=== PATIENT | female | born 1980 | race Caucasian/White ===

== ENCOUNTER 2020-10-30 09:18 | Inpatient (IN) ==
[2020-10-30] MEDS ORDERED: FAMOTIDINE 20MG/5ML IV PUSH IV STA (10:15)
[2020-10-30] MEDS ORDERED: ACETAMINOPHEN 1,000 MG/100 ML VIAL IV STA (10:15)
[2020-10-30] MEDS ORDERED: SODIUM CHLORIDE 0.9% 1000ML 2,000 ML IV ONE (10:19)
[2020-10-30] MEDS ORDERED: ONDANSETRON INJ 2 MG/ML 2 ML VIAL IV STA (10:19)
--- NOTE | 2020-10-30 10:22 | Communication Note ---
Date of Service: October 30, 2020 I personally saw the patient. Patient's case was discussed with Dr. Arora, ED attending, and I participated in MDM. Please see attending documentation for full details.
[2020-10-30 10:32] LABS: Basophils # (auto) 0.01 K/uL (0-0.2); Basophils % (auto) 0.1 %; Hematocrit (blood only) 42.8 % (37-47); Hemoglobin 14.4 g/dL (12.0-16.0); Immature Granulocytes # (auto) 0.06 K/uL (0.00-0.02); Immature Granulocytes % (auto) 0.4 %; Lymphocytes # (auto) 0.47 K/uL (1.2-3.4); Mean Corpuscular Hemoglobin 30.5 pg (25-34); Mean Corpuscular Hgb Conc 33.6 g/dL (32-36); Mean Corpuscular Volume 90.7 fL (80-100); Monocytes % (auto) 3.2 %; Neutrophils # (auto) 14.51 K/uL (1.4-6.5); Neutrophils % (auto) 93.3 %; Platelet Count 199 K/uL (130-400); RDW Coefficient of Variation 13.6 % (11.5-14.5); RDW Standard Deviation 45.1 fL (36.4-46.3); Red Blood Count 4.72 M/uL (4.2-5.4); White Blood Count 15.55 K/uL (4.8-10.8)
[2020-10-30 10:34] LABS: Appearance Urine Cloudy (Clear); Bacteria Urine Automated Negative (Negative); Blood Urine Trace (Negative); Color Urine Dark Yellow; Epithelial Cell Urine Auto >30 /lpf (0-5); Glucose Urine UA Negative (Negative); Ketones Urine 4+ (Negative); Leukocyte Esterase Urine Trace (Negative); Nitrite Urine Negative (Negative); Protein Urine 2+ (Negative); Specific Gravity Urine 1.032 (1.000-1.030); Urobilinogen Urine Negative (Negative); pH Urine 5.5 (4.5-7.5)
[2020-10-30 10:35] LABS: Bilirubin Urine 1+ (Negative)
[2020-10-30 10:47] LABS: Albumin Level 3.4 gm/dl (3.4-5.0); BUN Creatinine Ratio 12.1 (10-20); Calcium 9.2 mg/dl (8.5-10.1); Creatinine Clr Calc Pharmacy 106.8 ml/min; Est GFR (Non-African American) 95.8 ml/min; Magnesium 1.7 mg/dl (1.8-2.4); Potassium 3.7 mmol/L (3.5-5.1)
[2020-10-30 10:50] LABS: Albumin Globulin Ratio 0.9 (0.9-2); Bilirubin,Total 0.8 mg/dl (0.2-1); Globulin 3.9 gm/dl (2.5-4.0); Phosphorus 1.6 mg/dl (2.5-4.9); Total Protein 7.3 gm/dl (6.4-8.2)
[2020-10-30 10:54] LABS: Pregnancy Test, Serum Negative (Negative)
[2020-10-30] MEDS ORDERED: POTASSIUM PHOS 3 MMOL/1 ML INFUSION IV STA ×2 (11:23→14:29)
[2020-10-30] MEDS ORDERED: MAGNESIUM SULFATE / D5W 1 GM/100 ML BAG IV STA ×2 (11:23→14:30)
[2020-10-30] MEDS ORDERED: POTASSIUM PHOSPHATE 15 MMOL in SODIUM CHLORIDE 0.9% 250 ML IV ONE (11:45)
[2020-10-30] MEDS ORDERED: OPTIRAY 320 100ml IV ONE (13:31)
--- NOTE | 2020-10-30 14:22 | CT Scan Report ---
CT abd pelvis oral and IV con CLINICAL HISTORY: lower abdominal pain COMPARISON STUDY: None. TECHNIQUE: A dose lowering technique was utilized adhering to the principles of ALARA. CT DOSE: 599.54 mGy.cm FINDINGS: Lower chest: Small atelectasis at dependent portion of the left lower lobe.. Liver: The contrast-enhanced liver is normal in size, contour, and attenuation. There is no intrahepa tic biliary ductal dilatation. The hepatic veins and portal veins are patent. Gallbladder: Unremarkable. Spleen: Normal in size and attenuation. Pancreas: Unremarkable. Adrenal glands: Unremarkable. Kidneys: There is symmetric renal cortical enhancement. The kidneys are normal in size without hydron ephrosis.Punctate nonobstructive calculus is seen within right renal pelvis. Pelvic viscera: Urinary bladder is adequately filled with urine. Uterus shows normal appearance for p atient's age group. Cystic appearance of bilateral adnexa measuring up to 3.4 cm on the right. Small amount of free fluid is seen within cul-de-sac. Bowel: Status post gastric bypass surgery. Bowel loops are nondilated. There is 1.0 cm dilated and fl uid-filled appendix (3/315; 2/64) which is better seen on coronal reconstruction, slice 311 of 513. T here is mild diffuse mesenteric edema is seen within the right lower quadrant without definite absces s formation. Peritoneum: There is no intraperitoneal free air or abdominal ascites. Vasculature: The abdominal aorta is normal in course and caliber. Adenopathy: None. Skeletal structures: Incidental findings of ill-defined sclerotic lesion of the left iliac bone and n o definite surrounding soft tissue inflammatory changes (2/315) IMPRESSION: 1. Dilated fluid-filled appendix with surrounding fat stranding likely representing acute appendicit is. No definite abscess is seen within the right lower quadrant. No free intra-abdominal gas is demon strated to suggest perforation. 2. Cystic appearance of bilateral adnexa measuring up to 3.4 cm on the right. Differential diagnosis include physiologic follicles or ovarian cysts. Follow-up evaluation with pelvic ultrasound on nonem ergency basis is suggested. 3. Nonobstructive nephrolithiasis on the right. 4. Incidental findings of sclerotic appearance of the left iliac bone. Differential diagnosis includ e fibrous dysplasia versus other etiology. Follow-up evaluation with radiograph of the pelvis on none mergency basis is recommended. 5. The rest of findings as above. ACT 112: Positive. There are findings on this exam that require communication between the performing entity and the patient following Patient Test Result Information Act ([place] Act 112) guidelines. The above report was generated using voice recognition software. It may contain grammatical, syntax o r spelling errors. Electronically signed by: Ashley Rooney DO 10/30/2020 2:20 PM
[2020-10-30] MEDS ORDERED: cefOXitin 2,000 MG/60 ML BAG IV STA (14:29)
--- NOTE | 2020-10-30 14:58 | History & Physical Report ---
Date of Service October 30, 2020 Assessment & Plan (1) Acute appendicitis: Plan: Will plan for laparoscopic appendectomy this evening, possible open procedure if necessary. Mefoxin was given in the ED. Dr. Herrera-no overt abscess on the CAT scan however patient has had symptoms for at least 48 hours and she has a fever May require open operation with drainage. We will also ask the [facility] medical team to help us with her perioperative care History of Present Illness Primary Care Provider: Jami Allen MD 39 y/o female with 2 days generalized abdominal pain localizing to RLQ. Had N/V when sx began on Friday. Has not had much to eat or drink since and nothing today. Found to be febrile in ED, didn't notice this at home. Allergies Allergy/AdvReac Type Severity Reaction Status Date / Time bupropion [From Wellbutrin] Allergy Intermediate Shortness Unverified 10/30/20 09:56 of Breath Home Medications Medication Instructions Recorded Confirmed Type lorazepam 0.5 mg tablet 0.5 mg PO DIRECTED PRN 11/10/17 10/30/20 History calcium carbonate 600 mg (1,500 1 tab PO DAILY 10/30/20 10/30/20 History mg)-vitamin D3 200 unit tablet pediatric multivitamin no.76 1 tab PO DAILY 10/30/20 10/30/20 History (Flintstones Complete) Past Med/Surg History Surgical History H/O gastric bypass Family History Other FH: cholecystectomy Social History Smoking Status: Never smoker Hx Alcohol Use: No Hx Substance Use: No Feels Safe at Home: Yes Review of Systems Constitutional: + anorexia; no fever and no chills Gastrointestinal: + abdominal pain, + nausea and + vomiting Physical Exam Constitutional: WD/WN, vitals as above Respiratory: normal respiratory effort, lungs clear to auscultation Cardiovascular: RRR, no murmur, no edema Gastrointestinal (Abdomen): Inspection/Auscultation: + abdominal surgical scar; abdomen not distended Percussion/Palpation: + abdomen tender (RLQ) and abdomen soft Skin: no rashes, warm and dry Results & Data Results & Data ([facility]) Vital Signs (Past 12 Hours) Vital Signs Temp Pulse Pulse Resp BP Pulse Ox 10/30/20 12:30 98 H 16 97/71 L 97 10/30/20 10:30 99 H 18 129/81 99 10/30/20 09:22 38.2 C H 106 H 18 96
[2020-10-30] MEDS ORDERED: MAGNESIUM SULFATE / D5W 1 GM/100 ML BAG IV ONE (15:07)
--- NOTE | 2020-10-30 15:17 | Hospitalist Consultation ---
Date of Consultation October 30, 2020 Assessment & Plan (1) Acute appendicitis: This is a 39yo F with a PMH of VITALY, history of gastric bypass surgery in 2009 who presented with abdominal pain and was found to have acute appendicitis. Febrile at 38.2 C in the ER, BP 97/70, HR 106, WBC 15.55 meeting sepsis criteria Lactate, blood cultures pending Empiric Zosyn started - follow cultures CT abd/pelvis with dilated fluid-filled appendix with surrounding fat stranding likely representing acute appendicitis. No definite abscess is seen within the right lower quadrant. No free intra-abdominal gas is demonstrated to suggest perforation General surgery to plan for laparoscopic appendectomy this evening, possible open procedure if necessary Pain control, diet, continued fluids mgmt per primary service (2) Hypophosphatemia: (3) Hypomagnesemia: Phosphate and magnesium replacement underway in ED Repeat lab work @ 1999 (4) Abnormal urinalysis: UA abnormal, receiving Zosyn for appendicitis and will cover for possible UTI as well Follow urine culture (5) History of gastric bypass: H/o gastric bypass surgery [place] 2009 [place] [facility] [place] Continue Flintstones complete MV BID, Vit D + C BID (6) VITALY (generalized anxiety disorder): Improved as of late. PRN Lorazepam DVT Ppx: SCDs Code status: FULL PCP: Alejandro Dispo: Per primary service Patient seen in collaboration with Dr. Dunn. Please see addendum. Thank you for this consultation. We will follow the patient with you during their hospital stay. You can reach a member of the [facility] Hospitalist Team 23/09 via [employer] Text @ "[facility] Hospitalist" role. Supervising Physician Co-Signing Physician Notes Patient is a 39-year-old female with history of generalized anxiety disorder, H/O gastric bypass surgery and no other significant medical problems presents with history of abdominal pain associated with nausea, vomiting, fever and chills since 2 days duration. Please review HPI for complete details of presentation. CT abdomen is suggestive of acute appendicitis, bilateral adnexal cystic lesions, nonobstructive nephrolithiasis, left iliac bone sclerosis. Blood work suggestive of leukocytosis 15 point 5K, hypomagnesemia 1.7, hypophosphatemia 1.6, abnormal urinalysis suggestive of possible urinary tract infection. Covid screen is negative. Patient is consulted for medical management. Physical Exam: Vitals signs as noted above General Appearance:Moderately built and nourished, no apparent distress Head: normocephalic, Atraumatic Eyes: normal inspection, EOMI Neck: supple, Trachea midline Respiratory/Chest: Normal breath sounds, CTA, No accessory muscle use Cardiovascular: S1, S2, No murmur, Tachycardia Abdomen/GI:Soft, B/L Lower quadrant tender, Bowel sounds present Extremities/Musculoskeletal:normal inspection, no edema Neurologic/Psych:AAOX3, grossly no focal neurological deficits Skin: normal color, warm Acute appendicitis Sepsis Hypophosphatemia Hypomagnesemia Abnormal UA concerning for UTI Agree with IV fluids, Zosyn Keep n.p.o. Replace electrolytes as needed Blood, urine cultures, lactic acid B/L Adnexal cysts Incidental finding on CT Needs OBGYN eval as outpatient Left iliac bone sclerosis Currently denies any acute symptoms Follow-up as outpatient Nonobstructive nephrolithiasis Asymptomatic I personally reviewed the record. Patient is interviewed and examined at bedside. Patient's care is coordinated with Rita Barber PA-C. Please refer to the documentation above for details of patient's presentation and for discussion of other issues. History of Present Illness Reason for Consultation: electrolyte mgmt Requesting Physician: Dr. Herrera Attending Physician: Dr. Herrera History of Present Illness This is a 39yo F with a PMH of VITALY, history of gastric bypass surgery in 2009 who presented with abdominal pain and was found to have acute appendicitis. Endorses abdominal pain for the past 2 days most severe in RLQ. Pain is intermittent, sharp, radiating to back and LLQ and exacerbated with movement. Had nausea and vomiting with initial pain over the weekend and has not have much to eat or drink since then. Intermittent chills. Did not take temperature at home but found to be febrile at 38.2 C in the ER. No diarrhea. No chest pain, SOB, lightheadedness, headache. Denies dysuria or hematuria but endorses odor. General surgery to plan for laparoscopic appendectomy this evening, possible open procedure if necessary. Phosphate and magnesium replacement underway in ED. Takes Flintstones complete MV BID as well as Vit D + C BID. Allergies Allergy/AdvReac Type Severity Reaction Status Date / Time bupropion [From Wellbutrin] Allergy Intermediate Shortness Unverified 10/30/20 09:56 of Breath Home Medications Medication Instructions Recorded Confirmed Type lorazepam 0.5 mg tablet 0.5 mg PO DIRECTED PRN 11/10/17 10/30/20 History calcium carbonate 600 mg (1,500 1 tab PO BID 10/30/20 10/30/20 History mg)-vitamin D3 200 unit tablet pediatric multivitamin no.76 1 tab PO DAILY 10/30/20 10/30/20 History (Flnahomy Complete) Patient History Medical History VITALY (generalized anxiety disorder) Surgical History H/O gastric bypass Family History Other FH: cholecystectomy Social History (Updated 10/30/20 @ 16:00 by Rita Barber PA-C) Smoking Status: Former smoker Smoking End Date: 2007; Hx Alcohol Use: Yes Alcohol Intake Frequency: Monthly or Less Hx Substance Use: No Feels Safe at Home: Yes Review of Systems Review of Systems: At least ten systems reviewed and negative except as noted in the HPI. Physical Exam Physical Exam: Please see Dr. Dunn's addendum for physical exam. Results & Data Results & Data ([facility]) Vital Signs (Past 12 Hours) Vital Signs Temp Pulse Pulse Resp BP Pulse Ox 10/30/20 12:30 98 H 16 97/71 L 97 10/30/20 10:30 99 H 18 129/81 99 10/30/20 09:22 38.2 C H 106 H 18 96 Laboratory Results Short CBC 10/30/20 Range/Units 10:00 WBC 15.55 H (4.8-10.8) K/uL Hgb 14.4 (12.0-16.0) g/dL Hct 42.8 (37-47) % Plt Count 199 (130-400) K/uL BMP 10/30/20 10:00 Sodium 135 L Potassium 3.7 Chloride 102 Carbon Dioxide 25 BUN 9 Creatinine 0.78 Glucose 130 H Calcium 9.2 Liver Function 10/30/20 Range/Units 10:00 Total Bilirubin 0.8 (0.2-1) mg/dl AST 19 (15-37) U/L ALT 28 (12-78) U/L Alkaline Phosphatase 69 (45-117) U/L Albumin 3.4 (3.4-5.0) gm/dl Urine 10/30/20 Range/Units 10:23 Urine Color Dark Yellow Urine Appearance Cloudy A (Clear) Urine pH 5.5 (4.5-7.5) Ur Specific Eure 1.032 H (1.000-1.030) Urine Protein 2+ H (Negative) Urine Glucose (UA) Negative (Negative) Diagnostic Findings Abdomen/Pelvis CT 10/30/20 10:19 CT abd pelvis oral and IV con CLINICAL HISTORY: lower abdominal pain COMPARISON STUDY: None. TECHNIQUE: A dose lowering technique was utilized adhering to the principles of ALARA. CT DOSE: 599.54 mGy.cm FINDINGS: Lower chest: Small atelectasis at dependent portion of the left lower lobe.. Liver: The contrast-enhanced liver is normal in size, contour, and attenuation. There is no intrahepatic biliary ductal dilatation. The hepatic veins and portal veins are patent. Gallbladder: Unremarkable. Spleen: Normal in size and attenuation. Pancreas: Unremarkable. Adrenal glands: Unremarkable. Kidneys: There is symmetric renal cortical enhancement. The kidneys are normal in size without hydronephrosis.Punctate nonobstructive calculus is seen within right renal pelvis. Pelvic viscera: Urinary bladder is adequately filled with urine. Uterus shows normal appearance for patient's age group. Cystic appearance of bilateral adnexa measuring up to 3.4 cm on the right. Small amount of free fluid is seen within cul-de-sac. Bowel: Status post gastric bypass surgery. Bowel loops are nondilated. There is 1.0 cm dilated and fluid-filled appendix (3/315; 2/64) which is better seen on coronal reconstruction, slice 311 of 513. There is mild diffuse mesenteric edema is seen within the right lower quadrant without definite abscess formation. Peritoneum: There is no intraperitoneal free air or abdominal ascites. Vasculature: The abdominal aorta is normal in course and caliber. Adenopathy: None. Skeletal structures: Incidental findings of ill-defined sclerotic lesion of the left iliac bone and no definite surrounding soft tissue inflammatory changes (2/315) IMPRESSION: 1. Dilated fluid-filled appendix with surrounding fat stranding likely representing acute appendicitis. No definite abscess is seen within the right lower quadrant. No free intra-abdominal gas is demonstrated to suggest perforation. 2. Cystic appearance of bilateral adnexa measuring up to 3.4 cm on the right. Differential diagnosis include physiologic follicles or ovarian cysts. Follow-up evaluation with pelvic ultrasound on nonemergency basis is suggested. 3. Nonobstructive nephrolithiasis on the right. 4. Incidental findings of sclerotic appearance of the left iliac bone. Differential diagnosis include fibrous dysplasia versus other etiology. Follow- up evaluation with radiograph of the pelvis on nonemergency basis is recommended . 5. The rest of findings as above. ACT 112: Positive. There are findings on this exam that require communication between the performing entity and the patient following Patient Test Result Information Act ([place] Act 112) guidelines. The above report was generated using voice recognition software. It may contain grammatical, syntax or spelling errors. Electronically signed by: Ashley Rooney DO 10/30/2020 2:20 PM
--- NOTE | 2020-10-30 15:29 | Emergency Department Note ---
Impression & Plan Acute appendicitis, History of gastric bypass, Hypomagnesemia, Hypophosphatemia ED Provider Note NAME: SHALOM PAREKH AGE: 39 SEX: F ARRIVES VIA: Walk-In INFORMANT: Patient, ED PROVIDER(S): Eduardo Arora MD CHIEF COMPLAINT: Abdominal pain, n/v. PLAN: Disposition: Admit MEDICAL DECISION MAKING: The patient is a pleasant 39 yo female with h/o gastric bypass in 2008 who presents to the ED for 2 days of subjective fever/chills, NBNB vomiting, decreased PO intake, lower abdominal pain that radiates to both sides of her back and groin, and "bladder" fullness. Her symptoms started the day after eating at [facility]. Patient reports that she has only been able to keep down small amounts of water without vomiting. She has not been able to take any medications for her pain because she cannot keep anything down. She denies diarrhea or c onstipation. Denies dysuria or increased urinary frequency/urgency. She denies alcohol use, tobacco use or drug use. On arrival patient is uncomfortable but no acute distress, febrile to 38 with heart rate in the with 100s and vital signs otherwise stable. On exam the patient appears clinically dry. She has moderate lower abdominal tenderness right greater than left. She has no guarding or rebound. WBC 15.5K. H/H and platelets within normal limits. Chemistry without metabolic acidosis. Magnesium 1.7 and phosphorus 1.6 with repletion initiated. LFTs unremarkable. Lipase not elevated. hCG was negative. UA is suspicious for infection albeit with epithelial cells present and no bacteria and patient denies urinary symptoms. CT of the and pelvis with IV and oral contrast was performed and demonstrates evidence consistent with appendicitis with dilated fluid-filled appendix with surrounding fat stranding. Case was discussed with Bulmaro Long, general surgery PAC and Dr. Herrera general surgery who evaluate the patient for admission and planned OR. They will consult inpatient [facility] Medical service to assist in medical management. This patient was managed with the assistance of resident, Dr. Fernández. I discussed the case with the resident, examined the patient, and confirm the findings and plan as documented in this note. Triage Nursing notes reviewed and agree them. Prior medical records reviewed Vital Signs: reviewed and remarkable for fever and tachycardia. Differential diagnosis: Appendicitis, ovarian cyst, ovarian torsion, ectopic , TOA, PID, infections, diverticulitis, UTI, obstruction, mesenteric ischemia, aortic pathology, inflammatory bowel disease, renal colic, PUD, pancreatitis, biliary pathology, hernia, volvulus, constipation, as well as other pathologies. ER treatment provided: See below. Diagnostics interpreted by me: ECG: None Cardiac Monitoring: None Laboratory studies: See below Imaging studies: See below Consultation(s): Bulmaro Long, general surgery PAC and Dr. Herrera general surgery who evaluate the patient for admission and planned OR. HPI: The patient is a pleasant 39 yo female with h/o gastric bypass in 2008 who presents to the ED for 2 days of subjective fever/chills, NBNB vomiting, decreased PO intake, lower abdominal pain that radiates to both sides of her back and groin, and "bladder" fullness. Her symptoms started the day after eatin g at [facility]. Patient reports that she has only been able to keep down small amounts of water without vomiting. She has not been able to take any medications for her pain because she cannot keep anything down. She denies diarrhea or constipation. Denies dysuria or increased urinary frequency/urgency. She denies alcohol use, tobacco use or drug use. ROS: See above HPI for pertinent positives & negatives. A total of 10 systems reviewed and were otherwise negative. PAST MEDICAL HISTORY:See Below PAST SURGICAL HISTORY:See Below FAMILY HISTORY:See Below SOCIAL HISTORY:See Below HOME MEDICATIONS:See Below ALLERGIES:See Below VITALS:See Below PHYSICAL EXAMINATION: GENERAL: Awake, alert, uncomfortable-appearing, in no distress HENT: Normocephalic, atraumatic. Oropharynx unremarkable. EYES: Normal conjunctiva. Sclera non-icteric. NECK: Supple. No nuchal rigidity. FROM. No JVD. RESPIRATORY: Clear to auscultation. CARDIAC: Regular rate, normal rhythm. Extremities warm and well perfused. Pulses equal. ABDOMEN: Soft, non-distended. Moderate lower abdominal tenderness to palpation right greater than left. No rebound or guarding. No masses. RECTAL: Deferred. MUSCULOSKELETAL: Chest examination reveals no tenderness. The back is symmetrical on inspection without obvious abnormality. There is no CVA tenderness to palpation. No joint edema. LOWER EXTREMITIES: Calves are equal size bilaterally and non-tender. No edema. No discoloration. NEURO: Normal sensorium. No sensory or motor deficits noted. SKIN: No rash or jaundice noted. 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 Required: No Beliefs That Will Affect Care: None Current Living Situation: Alone Other Information That Helps Us Care for You: No Feels Safe at Home: Yes Safety Concerns: Feels Safe At This Time Assistive Devices: Glasses Assistive Devices Comment: In the car, only for driving Allergies Allergies Allergy/AdvReac Type Severity Reaction Status Date / Time bupropion [From Wellbutrin] Allergy Intermediate Shortness Unverified 10/30/20 09:56 of Breath Home Meds Home Medications Medication Instructions Recorded Confirmed lorazepam 0.5 mg tablet 0.5 mg PO DIRECTED PRN 11/10/17 10/30/20 calcium carbonate 600 mg (1,500 1 tab PO BID 10/30/20 10/30/20 mg)-vitamin D3 200 unit tablet pediatric multivitamin no.76 1 tab PO DAILY 10/30/20 10/30/20 (Flintstones Complete) Results & Data (ED) Vital Signs Vital Signs - 24 hr 10/30/20 09:22 10/30/20 10:30 10/30/20 12:30 Temperature 38.2 C H Temperature Source Temporal Artery Scan Pulse Rate 106 H Pulse Rate [Apical] Pulse Rate [Finger] Pulse Rate [Left Apical] 99 H 98 H Pulse Rate [Left Finger] Pulse Rhythm [Apical] Pulse Rhythm [Finger] Pulse Rhythm [Left Apical] Regular Regular Pulse Rhythm [Left Finger] Pulse Strength [Finger] Pulse Strength [Left Apical] Normal Normal Pulse Strength [Left Finger] Respiratory Rate 18 18 16 Respiratory Effort / Characteristics Non-Labored Non-Labored Spontaneous Non-Labored Spontaneous Respiratory Depth Normal Normal Normal Respiratory Pattern Regular Regular Blood Pressure [Left Arm] 129/81 97/71 L Blood Pressure [Right Arm] Blood Pressure Mean [Left Arm] 97 79 Blood Pressure Mean [Right Arm] Blood Pressure Position [Left Arm] Lying Lying Blood Pressure Position [Right Arm] Pulse Oximetry 96 99 97 Oxygen Delivery Method Room Air Room Air Room Air Oxygen Flow Rate Sepsis Recent Fever Within 48 Hours No Sepsis New/Unexplained Change in Mental Status No Sepsis Action Taken by Nursing No Action Required 10/30/20 16:25 10/30/20 18:16 10/30/20 18:25 Temperature 38.9 C H Temperature Source Oral Pulse Rate Pulse Rate [Apical] 83 91 H Pulse Rate [Finger] Pulse Rate [Left Apical] Pulse Rate [Left Finger] 111 H Pulse Rhythm [Apical] Regular Regular Pulse Rhythm [Finger] Pulse Rhythm [Left Apical] Pulse Rhythm [Left Finger] Regular Pulse Strength [Finger] Pulse Strength [Left Apical] Pulse Strength [Left Finger] Normal Respiratory Rate 20 15 17 Respiratory Effort / Characteristics Non-Labored Spontaneous Non-Labored Spontaneous Non-Labored Spontaneous Respiratory Depth Normal Normal Normal Respiratory Pattern Regular Regular Regular Blood Pressure [Left Arm] 130/77 113/80 Blood Pressure [Right Arm] 125/77 Blood Pressure Mean [Left Arm] 94 91 Blood Pressure Mean [Right Arm] 93 Blood Pressure Position [Left Arm] Lying Lying Blood Pressure Position [Right Arm] Semi-fowlers Pulse Oximetry 97 100 100 Oxygen Delivery Method Room Air Oxymask Oxymask Oxygen Flow Rate 4 4 Sepsis Recent Fever Within 48 Hours Sepsis New/Unexplained Change in Mental Status Sepsis Action Taken by Nursing 10/30/20 18:35 10/30/20 18:45 10/30/20 18:55 Temperature Temperature Source Pulse Rate Pulse Rate [Apical] 82 96 H 77 Pulse Rate [Finger] Pulse Rate [Left Apical] Pulse Rate [Left Finger] Pulse Rhythm [Apical] Regular Regular Regular Pulse Rhythm [Finger] Pulse Rhythm [Left Apical] Pulse Rhythm [Left Finger] Pulse Strength [Finger] Pulse Strength [Left Apical] Pulse Strength [Left Finger] Respiratory Rate 14 20 18 Respiratory Effort / Characteristics Non-Labored Spontaneous Non-Labored Spontaneous Non-Labored Spontaneous Respiratory Depth Normal Normal Normal Respiratory Pattern Regular Regular Regular Blood Pressure [Left Arm] 114/67 115/68 105/70 Blood Pressure [Right Arm] Blood Pressure Mean [Left Arm] 82 83 81 Blood Pressure Mean [Right Arm] Blood Pressure Position [Left Arm] Lying Lying Lying Blood Pressure Position [Right Arm] Pulse Oximetry 100 97 94 Oxygen Delivery Method Oxymask Room Air Room Air Oxygen Flow Rate 4 Sepsis Recent Fever Within 48 Hours Sepsis New/Unexplained Change in Mental Status Sepsis Action Taken by Nursing 10/30/20 19:05 10/30/20 19:20 Temperature 36.8 C 37.7 C H Temperature Source Temporal Artery Scan Oral Pulse Rate Pulse Rate [Apical] 82 Pulse Rate [Finger] 78 Pulse Rate [Left Apical] Pulse Rate [Left Finger] Pulse Rhythm [Apical] Regular Pulse Rhythm [Finger] Regular Pulse Rhythm [Left Apical] Pulse Rhythm [Left Finger] Pulse Strength [Finger] Normal Pulse Strength [Left Apical] Pulse Strength [Left Finger] Respiratory Rate 19 18 Respiratory Effort / Characteristics Non-Labored Spontaneous Non-Labored Spontaneous Respiratory Depth Normal Normal Respiratory Pattern Regular Regular Blood Pressure [Left Arm] 103/66 103/68 Blood Pressure [Right Arm] Blood Pressure Mean [Left Arm] 78 79 Blood Pressure Mean [Right Arm] Blood Pressure Position [Left Arm] Lying Lying Blood Pressure Position [Right Arm] Pulse Oximetry 94 97 Oxygen Delivery Method Room Air Room Air Oxygen Flow Rate Sepsis Recent Fever Within 48 Hours Sepsis New/Unexplained Change in Mental Status Sepsis Action Taken by Nursing Laboratory Data Attestation: I reviewed the patient's lab results. Result diagrams: 10/30/20 10:00 10/30/20 10:00 Lab Results 10/30/20 10/30/20 10/30/20 Range/Units 10:00 10:00 10:00 WBC 15.55 H (4.8-10.8) K/uL RBC 4.72 (4.2-5.4) M/uL Hgb 14.4 (12.0-16.0) g/dL Hct 42.8 (37-47) % MCV 90.7 (80-100) fL MCH 30.5 (25-34) pg MCHC 33.6 (32-36) g/dL RDW Std Deviation 45.1 (36.4-46.3) fL RDW Coeff of Zander 13.6 (11.5-14.5) % Plt Count 199 (130-400) K/uL MPV 11.0 H (7.4-10.4) fL Immature Gran % (Auto) 0.4 % Neut % (Auto) 93.3 % Lymph % (Auto) 3.0 % [place] % (Auto) 3.2 % Eos % (Auto) 0.0 % Baso % (Auto) 0.1 % Neut # (Auto) 14.51 H (1.4-6.5) K/uL Lymph # (Auto) 0.47 L (1.2-3.4) K/uL [place] # (Auto) 0.50 (0.11-0.59) K/uL Eos # (Auto) 0.00 (0-0.5) K/uL Baso # (Auto) 0.01 (0-0.2) K/uL Immature Gran # (Auto) 0.06 H (0.00-0.02) K/uL Sodium 135 L (136-145) mmol/L Potassium 3.7 (3.5-5.1) mmol/L Chloride 102 (98-107) mmol/L Carbon Dioxide 25 (21-32) mmol/L Anion Gap 9.0 (3-11) BUN 9 (7-18) mg/dl Creatinine 0.78 (0.6-1.2) mg/dl Est Cr Clr Drug Dosing 106.8 ml/min Est GFR ( Amer) 111.0 ml/min Est GFR (Non-Af Amer) 95.8 ml/min BUN/Creatinine Ratio 12.1 (10-20) Glucose 130 H (70-99) mg/dl Calcium 9.2 (8.5-10.1) mg/dl Phosphorus 1.6 L (2.5-4.9) mg/dl Magnesium 1.7 L (1.8-2.4) mg/dl Total Bilirubin 0.8 (0.2-1) mg/dl AST 19 (15-37) U/L ALT 28 (12-78) U/L Alkaline Phosphatase 69 (45-117) U/L Total Protein 7.3 (6.4-8.2) gm/dl Albumin 3.4 (3.4-5.0) gm/dl Globulin 3.9 (2.5-4.0) gm/dl Albumin/Globulin Ratio 0.9 (0.9-2) Lipase 52 L (73-393) U/L HCG, Qual Negative (Negative) Urine Color Urine Appearance (Clear) Urine pH (4.5-7.5) Ur Specific [place] (1.000-1.030) Urine Protein (Negative) Urine Glucose (UA) (Negative) Urine Ketones (Negative) Urine Blood (Negative) Urine Nitrite (Negative) Urine Bilirubin (Negative) Urine Urobilinogen (Negative) Ur Leukocyte Esterase (Negative) Urine WBC (Auto) (0-5) /hpf Urine RBC (Auto) (0-4) /hpf U Hyaline Cast (Auto) (0-5) /lpf U Epithel Cells (Auto) (0-5) /lpf Urine Bacteria (Auto) (Negative) Ur Renal Epithelial Cell Granular Casts (0) /lpf COVID-19 Eval Order SARS-CoV-2 (PCR) (Negative) 10/30/20 10/30/20 10/30/20 Range/Units 10:23 14:40 14:40 WBC (4.8-10.8) K/uL RBC (4.2-5.4) M/uL Hgb (12.0-16.0) g/dL Hct (37-47) % MCV (80-100) fL MCH (25-34) pg MCHC (32-36) g/dL RDW Std Deviation (36.4-46.3) fL RDW Coeff of [place] (11.5-14.5) % Plt Count (130-400) K/uL MPV (7.4-10.4) fL Immature Gran % (Auto) % Neut % (Auto) % Lymph % (Auto) % [place] % (Auto) % Eos % (Auto) % Baso % (Auto) % Neut # (Auto) (1.4-6.5) K/uL Lymph # (Auto) (1.2-3.4) K/uL [place] # (Auto) (0.11-0.59) K/uL Eos # (Auto) (0-0.5) K/uL Baso # (Auto) (0-0.2) K/uL Immature Gran # (Auto) (0.00-0.02) K/uL Sodium (136-145) mmol/L Potassium (3.5-5.1) mmol/L Chloride (98-107) mmol/L Carbon Dioxide (21-32) mmol/L Anion Gap (3-11) BUN (7-18) mg/dl Creatinine (0.6-1.2) mg/dl Est Cr Clr Drug Dosing ml/min Est GFR ( Amer) ml/min Est GFR (Non-Af Amer) ml/min BUN/Creatinine Ratio (10-20) Glucose (70-99) mg/dl Calcium (8.5-10.1) mg/dl Phosphorus (2.5-4.9) mg/dl Magnesium (1.8-2.4) mg/dl Total Bilirubin (0.2-1) mg/dl AST (15-37) U/L ALT (12-78) U/L Alkaline Phosphatase (45-117) U/L Total Protein (6.4-8.2) gm/dl Albumin (3.4-5.0) gm/dl Globulin (2.5-4.0) gm/dl Albumin/Globulin Ratio (0.9-2) Lipase (73-393) U/L HCG, Qual (Negative) Urine Color Dark Yellow Urine Appearance Cloudy A (Clear) Urine pH 5.5 (4.5-7.5) Ur Specific [place] 1.032 H (1.000-1.030) Urine Protein 2+ H (Negative) Urine Glucose (UA) Negative (Negative) Urine Ketones 4+ H (Negative) Urine Blood Trace H (Negative) Urine Nitrite Negative (Negative) Urine Bilirubin 1+ H (Negative) Urine Urobilinogen Negative (Negative) Ur Leukocyte Esterase Trace H (Negative) Urine WBC (Auto) 10-30 H (0-5) /hpf Urine RBC (Auto) 5-10 H (0-4) /hpf U Hyaline Cast (Auto) 10-30 H (0-5) /lpf U Epithel Cells (Auto) >30 H (0-5) /lpf Urine Bacteria (Auto) Negative (Negative) Ur Renal Epithelial Cell Not Reportable Granular Casts 5-10 H (0) /lpf COVID-19 Eval Order Covid19 at [facility] SARS-CoV-2 (PCR) NEGATIVE (Negative) Administered Medications Discontinued Medications Bupivacaine HCl (Bupivacaine 0.5 % 5 Mg/1 Ml Mpf 30ml Vial) Confirm Administered Dose 30 ml .ROUTE .STHigherNext-MED ONE Stop: 10/30/20 16:36 Last Admin: 10/30/20 18:00 Dose: 15 ml Documented by: [id number] Famotidine (Famotidine 20mg/5ml Iv Push) 20 mg IV ONE STA Stop: 10/30/20 10:16 Last Admin: 10/30/20 10:31 Dose: 20 mg Documented by: [id number] Acetaminophen (Ofirmev) 1,000 mg in 100 mls @ 400 mls/hr IV NOW STA Stop: 10/30/20 10:29 Last Infusion: 10/30/20 10:46 Dose: 0 mls/hr Documented by: [id number] Admin: 10/30/20 10:31 Dose: 400 mls/hr Documented by: [id number] Sodium Chloride (Nss 1000ml) 2,000 mls @ 999 mls/hr IV .Q2H1M ONE Stop: 10/30/20 12:19 Last Infusion: 10/30/20 12:25 Dose: 0 mls/hr Documented by: [id number] Admin: 10/30/20 10:31 Dose: 999 mls/hr Documented by: [id number] Magnesium Sulfate/Dextrose (Magnesium Sulfate / D5w) 1 gm in 100 mls @ 100 mls/hr IV NOW STA Stop: 10/30/20 12:22 Last Infusion: 10/30/20 13:10 Dose: 0 mls/hr Documented by: [id number] Admin: 10/30/20 12:10 Dose: 100 mls/hr Documented by: [id number] Potassium Phosphate 15 mmol/ (Sodium Chloride) 255 mls @ 100 mls/hr IV 1145 ONE Stop: 10/30/20 14:17 Last Infusion: 10/30/20 14:47 Dose: 0 mls/hr Documented by: [id number] Admin: 10/30/20 12:10 Dose: 100 mls/hr Documented by: [id number] Cefoxitin Sodium (Mefoxin) 2,000 mg in 60 mls @ 100 mls/hr IV NOW STA Stop: 10/30/20 15:04 Last Infusion: 10/30/20 20:34 Dose: 0 mls/hr Documented by: [id number] Admin: 10/30/20 14:46 Dose: 100 mls/hr Documented by: [id number] Magnesium Sulfate/Dextrose (Magnesium Sulfate / D5w) 1 gm in 100 mls @ 100 mls/hr IV NOW STA Stop: 10/30/20 15:29 Last Infusion: 10/30/20 20:35 Dose: 0 mls/hr Documented by: [id number] Admin: 10/30/20 14:46 Dose: 100 mls/hr Documented by: [id number] Potassium Phosphate 6 mmol/ (Sodium Chloride) 102 mls @ 88 mls/hr IV ONE ONE Stop: 10/30/20 16:54 Last Infusion: 10/30/20 20:35 Dose: 0 mls/hr Documented by: [id number] Admin: 10/30/20 16:11 Dose: 88 mls/hr Documented by: [id number] Potassium Chloride 20 meq/ (Sodium Chloride) 1,010 mls @ 125 mls/hr IV .Q8H5M ANGELITO Stop: 11/29/20 16:29 Last Admin: 10/30/20 20:41 Dose: Not Given Documented by: [id number] Piperacillin Sod/Tazobactam Sod (Zosyn) 4.5 gm in 120 mls @ 230 mls/hr IV 1600 ONE Stop: 10/30/20 16:31 Last Infusion: 10/30/20 20:34 Dose: 0 mls/hr Documented by: [id number] Admin: 10/30/20 16:48 Dose: 230 mls/hr Documented by: [id number] Acetaminophen (Ofirmev) 1,000 mg in 100 mls @ 400 mls/hr IV NOW ONE; Protocol Stop: 10/30/20 18:26 Last Infusion: 10/30/20 20:33 Dose: 0 mls/hr Documented by: [id number] Admin: 10/30/20 18:26 Dose: 400 mls/hr Documented by: [id number] Ioversol (Optiray 320 100ml) 94 ml IV ONCE ONE Stop: 10/30/20 13:32 Last Admin: 10/30/20 13:31 Dose: 94 ml Documented by: [id number] Ondansetron HCl (Ondansetron Inj 2 Mg/Ml 2 Ml Vial) 4 mg IV NOW STA Stop: 10/30/20 10:20 Last Admin: 10/30/20 10:31 Dose: 4 mg Documented by: [id number] Potassium Phosphate (Potassium Phos 3 Mmol/1 Ml Infusion) 15 mmol IV NOW STA Stop: 10/30/20 11:24 Last Admin: 10/30/20 20:40 Dose: Not Given Documented by: [id number] Imaging Data Radiologist's Impression: Abdomen/Pelvis CT 10/30/20 10:19 CT abd pelvis oral and IV con CLINICAL HISTORY: lower abdominal pain COMPARISON STUDY: None. TECHNIQUE: A dose lowering technique was utilized adhering to the principles of ALARA. CT DOSE: 599.54 mGy.cm FINDINGS: Lower chest: Small atelectasis at dependent portion of the left lower lobe.. Liver: The contrast-enhanced liver is normal in size, contour, and attenuation. There is no intrahepatic biliary ductal dilatation. The hepatic veins and portal veins are patent. Gallbladder: Unremarkable. Spleen: Normal in size and attenuation. Pancreas: Unremarkable. Adrenal glands: Unremarkable. Kidneys: There is symmetric renal cortical enhancement. The kidneys are normal in size without hydronephrosis.Punctate nonobstructive calculus is seen within right renal pelvis. Pelvic viscera: Urinary bladder is adequately filled with urine. Uterus shows normal appearance for patient's age group. Cystic appearance of bilateral adnexa measuring up to 3.4 cm on the right. Small amount of free fluid is seen within cul-de-sac. Bowel: Status post gastric bypass surgery. Bowel loops are nondilated. There is 1.0 cm dilated and fluid-filled appendix (3/315; 2/64) which is better seen on coronal reconstruction, slice 311 of 513. There is mild diffuse mesenteric edema is seen within the right lower quadrant without definite abscess formation. Peritoneum: There is no intraperitoneal free air or abdominal ascites. Vasculature: The abdominal aorta is normal in course and caliber. Adenopathy: None. Skeletal structures: Incidental findings of ill-defined sclerotic lesion of the left iliac bone and no definite surrounding soft tissue inflammatory changes (2/315) IMPRESSION: 1. Dilated fluid-filled appendix with surrounding fat stranding likely represen ting acute appendicitis. No definite abscess is seen within the right lower quadrant. No free intra-abdominal gas is demonstrated to suggest perforation. 2. Cystic appearance of bilateral adnexa measuring up to 3.4 cm on the right. Differential diagnosis include physiologic follicles or ovarian cysts. Follow-up evaluation with pelvic ultrasound on nonemergency basis is suggested. 3. Nonobstructive nephrolithiasis on the right. 4. Incidental findings of sclerotic appearance of the left iliac bone. Differential diagnosis include fibrous dysplasia versus other etiology. Follow- up evaluation with radiograph of the pelvis on nonemergency basis is recommended. 5. The rest of findings as above. ACT 112: Positive. There are findings on this exam that require communication between the performing entity and the patient following Patient Test Result Information Act ([place] Act 112) guidelines. The above report was generated using voice recognition software. It may contain grammatical, syntax or spelling errors. Electronically signed by: Ashley Rooney DO 10/30/2020 2:20 PM Discharge Plan Visit Data Chief Complaint: GI Assessment Stated Complaint: INTESTIAL BLOCKAGE, CANNOT PASS GAS ED Provider: Eduardo Arora ED Midlevel Provider: Martell Fernández Discharge Problem: Acute appendicitis, History of gastric bypass, Hypomagnesemia, Hypophosphatemia Patient Disposition: Still a Patient Discharge Instructions Interventions: ED Discharge Assessment Last Done: 10/30/20 16:30 Discharge Problem: Acute appendicitis Qualifiers: Acute appendicitis type: with localized peritonitis Appendicitis gangrene presence: without gangrene Appendicitis perforation presence: without perforation Appendicitis abscess presence: without abscess Qualified Code(s): K35.30 - Acute appendicitis with localized peritonitis, without perforation or gangrene
[2020-10-30] MEDS ORDERED: POTASSIUM PHOSPHATE 6 MMOL in 0.9 % SODIUM CHLORIDE 100 ML IV ONE (15:45)
[2020-10-30] MEDS ORDERED: MIDAZOLAM HCL 1 MG/ML 2ML VIAL ONE (15:46)
[2020-10-30] MEDS ORDERED: GLYCOPYRROLATE 0.2 MG/ML VIAL ONE (15:46)
[2020-10-30] MEDS ORDERED: DEXAMETHASONE SOD INJ 4 MG/ML VIAL ONE (15:46)
[2020-10-30] MEDS ORDERED: LIDOCAINE 2% 2 ML VIAL/AMP(20MG/ML) INFIL ONE (15:46)
[2020-10-30] MEDS ORDERED: NEOSTIGMINE METHYLSULFATE 1 MG/ML 10ML VIAL ONE (15:46)
[2020-10-30] MEDS ORDERED: ONDANSETRON INJ 2 MG/ML 2 ML VIAL ONE (15:46)
[2020-10-30] MEDS ORDERED: fentaNYL citrate 100 MCG/2 ML VIAL ONE (15:46)
[2020-10-30] MEDS ORDERED: PROPOFOL IV EMULSION 10 MG/ML 20 ML VIAL IV ONE (15:46)
[2020-10-30] MEDS ORDERED: PIPERACILLIN/TAZOBACTAM 4.5 GM/120 ML BAG IV ONE ×2 (16:00→16:45)
[2020-10-30] MEDS ORDERED: LORazepam 0.5 MG TAB PO PRN (16:08)
[2020-10-30] MEDS ORDERED: PIPERACILL/TAZOBAC CONSULT ACTIVE PRN (16:09)
[2020-10-30] MEDS ORDERED: ePHEDrine sulfate 50 MG/ML SYR ONE (16:22)
[2020-10-30] MEDS ORDERED: LARYING-O-JET KIT (LTA) ONE (16:22)
[2020-10-30] MEDS ORDERED: POTASSIUM CHLORIDE 20 MEQ in SODIUM CHLORIDE 0.9% 1000ML 1,000 ML IV SCH (16:30)
[2020-10-30] MEDS ORDERED: BUPIVACAINE 0.5 % 5 MG/1 ML MPF 30ML VIAL ONE (16:35)
[2020-10-30] MEDS ORDERED: fentaNYL citrate 100 MCG/2 ML VIAL IV PRN (16:46)
[2020-10-30] MEDS ORDERED: ATROPINE SULFATE 0.1 MG/ML 10ML SYR IV PRN (16:46)
[2020-10-30] MEDS ORDERED: ONDANSETRON INJ 2 MG/ML 2 ML VIAL IV PRN ×2 (16:46→20:07)
[2020-10-30] MEDS ORDERED: ePHEDrine sulfate 50 MG/ML AMP IV PRN (16:46)
[2020-10-30] MEDS ORDERED: PROMETHAZINE HCL 12.5 MG in SODIUM CHLORIDE 0.9% 50 ML IV PRN ×2 (16:46→20:07)
[2020-10-30] MEDS ORDERED: HYDROmorphone INJ 2 MG/ML SYR/VIAL IV PRN (16:46)
--- NOTE | 2020-10-30 16:46 | Anesthesiology Consultation ---
Date of Service October 30, 2020 Assessment & Plan ASA ASA2 Proposed Anesthesia Anesthesia Type: General Risk / Benefits Reviewed With: PT / POA / Parent / Guardian, Accepts Plan and Informed Consent Obtained History Surgery Operation Date: 10/30/20 13:10 Proposed Procedures p Laparoscopic Appendectomy - Murray Herrera MD, FACS Height/Weight Height: 5 ft 5 in Weight: 89.1 kg Allergies Allergy/AdvReac Type Severity Reaction Status Date / Time bupropion [From Wellbutrin] Allergy Intermediate Shortness Unverified 10/30/20 09:56 of Breath Medications Home Medications Medication Instructions Recorded Confirmed Last Taken lorazepam 0.5 mg tablet 0.5 mg PO DIRECTED PRN 11/10/17 10/30/20 Unknown calcium carbonate 600 mg (1,500 1 tab PO BID 10/30/20 10/30/20 10/30/20 mg)-vitamin D3 200 unit tablet pediatric multivitamin no.76 1 tab PO DAILY 10/30/20 10/30/20 10/30/20 (Flintstones Complete) Active Medications Generic Name Dose Route Start Last Admin Trade Name Freq PRN Reason Stop Dose Admin Potassium Phosphate 6 mmol/ 102 mls @ 88 mls/hr 10/30/20 15:45 10/30/20 16:11 Sodium Chloride IV 10/30/20 16:54 88 mls/hr ONE ONE Administration Past Medical History Medical History VITALY (generalized anxiety disorder) Exercise / Class Metabolic Activity II 4-5 Yardwork/Stairs/Walk up hill Past Family History Family History Other FH: cholecystectomy Past Surgical History Surgical History H/O gastric bypass Past Anesthesia History No Hx of Anesthesia Complications and No Family Hx of Anesthesia Complications History of PONV No Hx of PONV and No Hx of Motion Sickness Social History Smoking Status: Former smoker Smoking End Date: 2007 Hx Alcohol Use: Yes Hx Substance Use: No Review of Systems denies fever/cough/ colds/ chest pain/ SOB/ KHURRAM denies KHURRAM Physical Exam Vital Signs Last Vital Signs Temp 38.2 C H 10/30/20 09:22 Pulse 98 H 10/30/20 12:30 Resp 16 10/30/20 12:30 BP 97/71 L 10/30/20 12:30 Pulse Ox 97 10/30/20 12:30 ENMT Mouth: no TMJ abnormality and no dentition abnormality Thyromental Distance: > or= 3.5 Finger Breadths Mallampati Class: II Neck neck extension not limited Respiratory normal respiratory effort; no respiratory distress Auscultation: lungs clear to auscultation bilaterally Cardiovascular Rate/Rhythm: regular rate and regular rhythm Neurologic moves all extremities Psychiatric Orientation: alert and oriented x 3 Testing Laboratory Results 10/30/20 10:00 10/30/20 10:00 Urine Color Dark Yellow 10/30/20 10:23 Urine Appearance Cloudy (Clear) A 10/30/20 10:23 Urine pH 5.5 (4.5-7.5) 10/30/20 10:23 Ur Specific [place] 1.032 (1.000-1.030) H 10/30/20 10:23 Urine Protein 2+ (Negative) H 10/30/20 10:23 Urine Glucose (UA) Negative (Negative) 10/30/20 10:23 Urine Ketones 4+ (Negative) H 10/30/20 10:23 Urine Nitrite Negative (Negative) 10/30/20 10:23 Ur Leukocyte Esterase Trace (Negative) H 10/30/20 10:23 Urine WBC (Auto) 10-30 /hpf (0-5) H 10/30/20 10:23 Urine RBC (Auto) 5-10 /hpf (0-4) H 10/30/20 10:23 U Hyaline Cast (Auto) 10-30 /lpf (0-5) H 10/30/20 10:23 U Epithel Cells (Auto) >30 /lpf (0-5) H 10/30/20 10:23 Urine Bacteria (Auto) Negative (Negative) 10/30/20 10:23
[2020-10-30] MEDS ORDERED: ROCURONIUM BROMIDE 10 MG/ML 5 ML VIAL IV ONE (17:32)
[2020-10-30] MEDS ORDERED: ACETAMINOPHEN 1,000 MG/100 ML VIAL IV ONE (18:12)
--- NOTE | 2020-10-30 18:12 | Post Operative Brief Note ---
PG Immediate Post Op with CF Date of Surgery October 30, 2020 Pre & Post Diagnosis Operation Date: 10/30/20 13:10 Pre-Op Diagnosis: Acute appendicitis Post-Op Diagnosis: Ruptured appendix with abscess I identified the patient and participated in the time-out.: Yes Procedure Operation Date: 10/30/20 13:10 Actual Procedures p Laparoscopic Appendectomy(Not Applicable) - Murray Herrera MD, FACS Abdominal washout with drain placement Surgeon Murray Herrera MD, FACS [employer] Specialist Nurses Estimated Blood Loss 20 Findings Consistent with Post-Op Diagnosis Ruptured appendix with bryce appendiceal abscess Specimens Specimen Description: A. Appendix Drains Conrad-Judd Drain (19fr round drain)
[2020-10-30] MEDS ORDERED: ACETAMINOPHEN 1000 MG/100 ML IV IV ONE (18:24)
--- NOTE | 2020-10-30 18:33 | Anesthesiology Progress Note ---
Date of Service October 30, 2020 Anesthesia Post Procedure Vital Signs Vital Signs: Temp Pulse Pulse Pulse Resp BP BP 10/30/20 16:25 38.9 C H 111 H 20 125/77 10/30/20 12:30 98 H 16 97/71 L 10/30/20 10:30 99 H 18 129/81 10/30/20 09:22 38.2 C H 106 H 18 Pulse Ox 10/30/20 16:25 97 10/30/20 12:30 97 10/30/20 10:30 99 10/30/20 09:22 96 Pain Intensity Right Lower Wrist: Pain Intensity: 6 Transfer of Care Handoff Completed per policy Notes Mental Status: alert / awake / arousable and participated in evaluation Patient Amnestic to Procedure: Yes Nausea / Vomiting: adequately controlled Pain: adequately controlled Airway Patency, RR, SpO2: stable & adequate BP & HR: stable & adequate Hydration State: stable & adequate Anesthetic Complications: no major complications apparent and Pt Satisfied with anesthetic care
[2020-10-30] MEDS ORDERED: IBUPROFEN 600 MG TAB PO PRN (20:07)
[2020-10-30] MEDS ORDERED: HYDROmorphone INJ 1 MG/ML SYRINGE IV PRN (20:07)
[2020-10-30] MEDS ORDERED: PROMETHAZINE HCL 25 MG in SODIUM CHLORIDE 0.9% 50 ML IV PRN (20:07)
[2020-10-30 21:16] LABS: BUN Creatinine Ratio 11.7 (10-20); Calcium 8.1 mg/dl (8.5-10.1); Creatinine Clr Calc Pharmacy 124.3 ml/min; Est GFR (African American) 128.3 ml/min; Est GFR (Non-African American) 110.7 ml/min; Magnesium 2.1 mg/dl (1.8-2.4); Phosphorus 2.1 mg/dl (2.5-4.9); Potassium 3.8 mmol/L (3.5-5.1)
[2020-10-30] MEDS: PIPERACILLIN/TAZOBACTAM 3.375 GM in DEXTROSE 5% 100 ML IV SCH (21:50)
[2020-10-30] MEDS: SODIUM CHLORIDE 0.9% 1000ML 1,000 ML IV SCH (21:50)
[2020-10-30] MEDS: CALCIUM 600MG + VIT D 400 IU TAB PO SCH (22:00)
[2020-10-30] MEDS: MULTIVITAMIN CHEWABLE TAB PO SCH (22:00)
[2020-10-31] MEDS: HYDROmorphone INJ 0.5 MG/0.5 ML SYR IV PRN ×3 (01:12→21:30)
[2020-10-31] MEDS: ACETAMINOPHEN 325 MG TAB PO PRN ×2 (01:13→07:53)
--- NOTE | 2020-10-31 02:47 | Operative Report (OR) ---
DATE OF OPERATION: 10/30/2020. NAME OF OPERATION: Laparoscopic appendectomy with abdominal washout and drain placement. PREOPERATIVE DIAGNOSIS: Acute appendicitis. POSTOPERATIVE DIAGNOSIS: Acute appendicitis with ruptured appendix and periappendiceal abscess. STAFF SURGEON: Murray Herrera MD ASSISTANTS: Nurses. ANESTHESIA: General. DESCRIPTION OF PROCEDURE: The patient was brought in the operating room and placed on the operating table in supine position. Pneumatic stockings and orogastric tube were placed. Incision was made ab ove the umbilicus, carrying dissection down to the fascia, placing a Veress needle producing pneumope ritoneum, placing a 5 mm port. Using the camera, we were able to place two additional 5 mm ports, on e suprapubically and one left lower quadrant. At this point, we were able to identify the appendix, which was thickened and inflamed with an exudate and some cloudy fluid in the periappendiceal area, a lso a small amount in the pelvis and left colic area. With some difficulty because of retroperitoneal adhesions, the appendix was mobilized. The base of the appendix was transected using Endo-PAULINE stapl er and then some additional 5 mm clips were used for the mesentery as well as additional PAULINE staple l oads. The appendix was placed into an Endobag and removed through the umbilical site. We placed a 1 2 mm port to use the stapler. We placed in the 5 mm port at the umbilicus. At this point, irrigatio n was performed throughout the abdomen and then we placed a third additional 5 mm port in the right s tio of the abdomen to place a 19-Cypriot Conrad-Judd drain into the right gutter down into the pelvi s, secured using 3-0 nylon suture. All ports were then removed. Fascia at the umbilicus was closed using 0 PDS suture. The skin was reapproximated using 4-0 nylon suture. Dressings were applied and the patient was transferred to recovery room in stable condition. Job ID: [id number]
[2020-10-31] MEDS: PIPERACILLIN/TAZOBACTAM 3.375 GM in DEXTROSE 5% 100 ML IV SCH ×3 (06:15→22:08)
--- NOTE | 2020-10-31 06:37 | Surgery Progress Note ---
Date of Service October 31, 2020 Assessment & Plan (1) S/P laparoscopic appendectomy: Plan: Patient presented to the emergency room with sepsisfever tachycardia and elevated white blood cell count with evidence of acute appendicitis She had a ruptured appendix with periappendiceal abscess She underwent laparoscopic appendectomy with abdominal washout and drain placement She appears much improved-her vital signs are stable Her drain shows serous sanguinous drainage which is expected We will try to advance her diet Continue IV fluids and IV antibiotics Favor additional days in the hospital because of her need for IV intervention And possible ileus Admission and Anticipated Discharge Date Admission Date: October 30, 2020 Results & Data ([facility]) Vital Signs (Past 12 Hours) Vital Signs Temp Pulse Pulse Resp BP BP Pulse Ox 10/31/20 02:11 36.8 C 68 17 96/63 L 96 10/30/20 22:41 36.7 C 68 18 112/73 96 10/30/20 21:27 36.7 C 80 17 119/74 96 10/30/20 20:20 36.7 C 80 17 111/73 96 10/30/20 19:55 36.5 C 80 17 103/64 96 10/30/20 19:20 37.7 C H 78 18 103/68 97 10/30/20 19:05 36.8 C 82 19 103/66 94 10/30/20 18:55 77 18 105/70 94 10/30/20 18:45 96 H 20 115/68 97 10/30/20 18:35 82 14 114/67 100 PG Care Time/CCT Total # of Minutes Spent Total Time Spent with Patient: Total time spent is greater than 50% in coordination of care (as documented) at patient's floor/unit and/or counseling patient: Coding Level of Care Code None Diagnoses S/P laparoscopic appendectomy Z90.49
[2020-10-31 07:51] LABS: Basophils # (auto) 0.01 K/uL (0-0.2); Basophils % (auto) 0.1 %; Eosinophils # (auto) 0.01 K/uL (0-0.5); Eosinophils % (auto) 0.1 %; Hematocrit (blood only) 37.7 % (37-47); Hemoglobin 12.3 g/dL (12.0-16.0); Immature Granulocytes # (auto) 0.01 K/uL (0.00-0.02); Immature Granulocytes % (auto) 0.1 %; Lymphocytes # (auto) 0.49 K/uL (1.2-3.4); Lymphocytes % (auto) 5.5 %; Mean Corpuscular Hemoglobin 29.9 pg (25-34); Mean Corpuscular Hgb Conc 32.6 g/dL (32-36); Mean Corpuscular Volume 91.7 fL (80-100); Mean Platelet Volume 11.2 fL (7.4-10.4); Monocytes # (auto) 0.45 K/uL (0.11-0.59); Neutrophils # (auto) 8.02 K/uL (1.4-6.5); Neutrophils % (auto) 89.2 %; Platelet Count 164 K/uL (130-400); RDW Coefficient of Variation 13.9 % (11.5-14.5); RDW Standard Deviation 46.7 fL (36.4-46.3); Red Blood Count 4.11 M/uL (4.2-5.4); White Blood Count 8.99 K/uL (4.8-10.8)
[2020-10-31 08:12] LABS: Estimated Average Glucose 94 mg/dl; Hemoglobin A1C 4.9 % (4.5-5.6)
[2020-10-31 08:26] LABS: Albumin Level 2.7 gm/dl (3.4-5.0); BUN Creatinine Ratio 12.4 (10-20); Calcium 8.3 mg/dl (8.5-10.1); Creatinine Clr Calc Pharmacy 132.2 ml/min; Magnesium 2.3 mg/dl (1.8-2.4); Potassium 4.2 mmol/L (3.5-5.1)
[2020-10-31 08:36] LABS: Albumin Globulin Ratio 0.8 (0.9-2); Bilirubin,Total 0.6 mg/dl (0.2-1); Globulin 3.2 gm/dl (2.5-4.0); Phosphorus 2.4 mg/dl (2.5-4.9); Total Protein 5.9 gm/dl (6.4-8.2)
--- NOTE | 2020-10-31 08:55 | Hospitalist Progress Note ---
Date of Service October 31, 2020 Assessment & Plan (1) Acute appendicitis: Plan: This is a 39yo F with a PMH of VITALY, history of gastric bypass surgery in 2009 who presented with abdominal pain and was found to have acute appendicitis. Sepsis - on admission - now resolved S/P Laparoscopic Appendectomy, POD #1 ruptured appendix with periappendiceal abscess BEVERLEY drain with serosanguineous drainage Advance diet per gen surg IVF and IV antibiotics per gen surg passing flatus blood and urine culture still pending (2) Hypophosphatemia: (3) Hypomagnesemia: Plan: improved, phos 2.4 today will give 6mmol neutra-phos (4) Abnormal urinalysis: Plan: continue Antibiotic Urine culture pending (5) History of gastric bypass: Plan: H/o gastric bypass surgery [place] 2009 [place] [facility] [place] Flintstones complete MV BID, Vit D + C BID (6) VITALY (generalized anxiety disorder): Plan: Improved as of late. PRN Lorazepam DVT Ppx: SCDs Code status: FULL PCP: Alejandro Dispo: Per primary service Patient seen in collaboration with Dr. Dunn. Please see addendum. Thank you for this consultation. We will follow the patient with you during their hospital stay. You can reach a member of the [facility] Hospitalist Team 23/09 via [place] Text @ "[facility] Hospitalist" role. Admission and Anticipated Discharge Date Admission Date: October 30, 2020 Supervising Physician Co-Signing Physician Notes Patient is seen and examined at bedside. States having minimal incisional pain but controlled. Denies nausea, vomiting, chest pain, dyspnea, dizziness. Tolerates liquid diet. Physical Exam: Vitals signs as noted above General Appearance:Moderately built and nourished, no apparent distress Head: normocephalic, Atraumatic Eyes: normal inspection, EOMI Neck: supple, Trachea midline Respiratory/Chest: Normal breath sounds, CTA Cardiovascular: S1, S2, No murmur, Tachycardia Abdomen/GI:Soft, Mild tenderness, +dressing, drain, Bowel sounds present Extremities/Musculoskeletal:normal inspection, no edema Neurologic/Psych:AAOX3, grossly no focal neurological deficits Skin: normal color, warm Acute appendicitis Sepsis Ruptured appendix with abscess S/P laparoscopic appendectomy POD#1 Continue wound care Continue IV fluids, antibiotics Advance diet as tolerated Appreciate surgery input Follow-up blood cultures Abnormal UA Likely contamination Urine Cx pending on Abx as above B/L Adnexal cysts Incidental finding on CT Needs OBGYN rejial as outpatient Left iliac bone sclerosis Currently denies any acute symptoms Follow-up as outpatient I personally reviewed the record. Patient is interviewed and examined at bedside. Patient's care is coordinated with Edelmira Hoffman PA-C. Please refer to the documentation above for details of patient's presentation and for discussion of other issues. Subjective Patient was seen and examined in room 384-2. F/U POD #1 Appendectomy. Overall patient has no concerns. She does complain of incisional pain as well as incisional pain with walking. She denies any fever, chills, sweats, lightheadedness, dizziness, chest pain, shortness breath, cough, nausea, vomiting and difficulty with urination. She is passing flatus. Tolerating liquid diet. Review of Systems Review of Systems: All systems reviewed & are unremarkable except as noted in HPI & below Physical Exam Physical Exam: Gen: WD/WN, NAD, A&O x3 HEENT: Normocephalic, atraumatic, conjunctivae moist, sclerae anicteric, mucous membranes moist. Lung: Clear to Auscultation bilaterally, no wheezes/rales/rhonchi Heart: Regular rate, regular rhythm, no murmurs, rubs, or gallops Abdomen: Soft, NT, ND +BS x 4, dressing CDI Extremities: No edema Skin: Warm, no rash, negative turgor. Results & Data Results & Data ([facility]) Vital Signs (Past 12 Hours) Vital Signs Temp Pulse Pulse Resp BP Pulse Ox 10/31/20 07:30 36.9 C 61 18 102/70 99 10/31/20 02:11 36.8 C 68 17 96/63 L 96 10/30/20 22:41 36.7 C 68 18 112/73 96 10/30/20 21:27 36.7 C 80 17 119/74 96 Laboratory Results Short CBC 10/30/20 10/31/20 Range/Units 10:00 07:12 WBC 15.55 H 8.99 (4.8-10.8) K/uL Hgb 14.4 12.3 (12.0-16.0) g/dL Hct 42.8 37.7 (37-47) % Plt Count 199 164 (130-400) K/uL BMP 10/30/20 10/30/20 10/31/20 10:00 20:39 07:12 Sodium 135 L 134 L 139 Potassium 3.7 3.8 4.2 Chloride 102 104 108 H Carbon Dioxide 25 24 27 BUN 9 8 8 Creatinine 0.78 0.67 0.63 Glucose 130 H 217 H 116 H Calcium 9.2 8.1 L 8.3 L Liver Function 10/30/20 10/31/20 Range/Units 10:00 07:12 Total Bilirubin 0.8 0.6 (0.2-1) mg/dl AST 19 19 (15-37) U/L ALT 28 25 (12-78) U/L Alkaline Phosphatase 69 62 (45-117) U/L Albumin 3.4 2.7 L (3.4-5.0) gm/dl Urine 10/30/20 Range/Units 10:23 Urine Color Dark Yellow Urine Appearance Cloudy A (Clear) Urine pH 5.5 (4.5-7.5) Ur Specific [place] 1.032 H (1.000-1.030) Urine Protein 2+ H (Negative) Urine Glucose (UA) Negative (Negative) Medications Administered Medication List Acetaminophen (Acetaminophen 325 Mg Tab) 650 mg PO Q4H PRN PRN Reason: Fever Stop: 11/29/20 20:06 Last Admin: 10/31/20 07:53 Dose: 650 mg Documented by: [id number] Admin: 10/31/20 01:13 Dose: 650 mg Documented by: [id number] Hydromorphone HCl (Hydromorphone Inj 0.5 Mg/0.5 Ml Syr) 0.5 mg IV Q3HWA PRN PRN Reason: Pain Stop: 11/13/20 20:06 Last Admin: 10/31/20 01:12 Dose: 0.5 mg Documented by: [id number] Piperacillin Sod/Tazobactam (Sod 3.375 gm/ Dextrose) 115 mls @ 28.75 mls/hr IV Q8H [facility]; Protocol Stop: 11/09/20 19:59 Last Admin: 10/31/20 06:15 Dose: 28.8 mls/hr Documented by: [id number] Infusion: 10/31/20 01:53 Dose: 0 mls/hr Documented by: [id number] Admin: 10/30/20 21:50 Dose: 28.8 mls/hr Documented by: [id number] Sodium Chloride (Nss 1000ml) 1,000 mls @ 50 mls/hr IV .Q20H ANGELITO Stop: 11/29/20 20:06 Last Infusion: 10/31/20 07:51 Dose: 50 mls/hr Documented by: [id number] Admin: 10/30/20 21:50 Dose: 80 mls/hr Documented by: [id number] Multivitamins/Folic Acid/Vitamin C (Multivitamin Chewable Tab) 1 tab PO BID ANGELITO Stop: 11/29/20 20:59 Last Admin: 10/30/20 22:00 Dose: 1 tab Documented by: [id number] Multivitamins/Minerals (Calcium 600mg + Vit D 400 Iu Tab) 1 tab PO BID ANGELITO Stop: 11/29/20 20:59 Last Admin: 10/30/20 22:00 Dose: 1 tab Documented by: [id number] Discontinued Medications Acetaminophen (Acetaminophen 1000 Mg/100 Ml Iv) Confirm Administered Dose 1,000 mg IV .STK-MED ONE Stop: 10/30/20 18:25 Last Admin: 10/30/20 21:56 Dose: Not Given Documented by: [id number] Bupivacaine HCl (Bupivacaine 0.5 % 5 Mg/1 Ml Mpf 30ml Vial) Confirm Administered Dose 30 ml .ROUTE .STK-MED ONE Stop: 10/30/20 16:36 Last Admin: 10/30/20 18:00 Dose: 15 ml Documented by: [id number] Famotidine (Famotidine 20mg/5ml Iv Push) 20 mg IV ONE STA Stop: 10/30/20 10:16 Last Admin: 10/30/20 10:31 Dose: 20 mg Documented by: [id number] Acetaminophen (Ofirmev) 1,000 mg in 100 mls @ 400 mls/hr IV NOW STA Stop: 10/30/20 10:29 Last Infusion: 10/30/20 10:46 Dose: 0 mls/hr Documented by: [id number] Admin: 10/30/20 10:31 Dose: 400 mls/hr Documented by: [id number] Sodium Chloride (Nss 1000ml) 2,000 mls @ 999 mls/hr IV .Q2H1M ONE Stop: 10/30/20 12:19 Last Infusion: 10/30/20 12:25 Dose: 0 mls/hr Documented by: [id number] Admin: 10/30/20 10:31 Dose: 999 mls/hr Documented by: [id number] Magnesium Sulfate/Dextrose (Magnesium Sulfate / D5w) 1 gm in 100 mls @ 100 mls/hr IV NOW STA Stop: 10/30/20 12:22 Last Infusion: 10/30/20 13:10 Dose: 0 mls/hr Documented by: [id number] Admin: 10/30/20 12:10 Dose: 100 mls/hr Documented by: [id number] Potassium Phosphate 15 mmol/ (Sodium Chloride) 255 mls @ 100 mls/hr IV 1145 ONE Stop: 10/30/20 14:17 Last Infusion: 10/30/20 14:47 Dose: 0 mls/hr Documented by: [id number] Admin: 10/30/20 12:10 Dose: 100 mls/hr Documented by: [id number] Cefoxitin Sodium (Mefoxin) 2,000 mg in 60 mls @ 100 mls/hr IV NOW STA Stop: 10/30/20 15:04 Last Infusion: 10/30/20 20:34 Dose: 0 mls/hr Documented by: [id number] Admin: 10/30/20 14:46 Dose: 100 mls/hr Documented by: [id number] Magnesium Sulfate/Dextrose (Magnesium Sulfate / D5w) 1 gm in 100 mls @ 100 mls/hr IV NOW STA Stop: 10/30/20 15:29 Last Infusion: 10/30/20 20:35 Dose: 0 mls/hr Documented by: [id number] Admin: 10/30/20 14:46 Dose: 100 mls/hr Documented by: [id number] Potassium Phosphate 6 mmol/ (Sodium Chloride) 102 mls @ 88 mls/hr IV ONE ONE Stop: 10/30/20 16:54 Last Infusion: 10/30/20 20:35 Dose: 0 mls/hr Documented by: [id number] Admin: 10/30/20 16:11 Dose: 88 mls/hr Documented by: [id number] Potassium Chloride 20 meq/ (Sodium Chloride) 1,010 mls @ 125 mls/hr IV .Q8H5M ANGELITO Stop: 11/29/20 16:29 Last Admin: 10/30/20 20:41 Dose: Not Given Documented by: [id number] Piperacillin Sod/Tazobactam Sod (Zosyn) 4.5 gm in 120 mls @ 230 mls/hr IV 1600 ONE Stop: 10/30/20 16:31 Last Infusion: 10/30/20 20:34 Dose: 0 mls/hr Documented by: [id number] Admin: 10/30/20 16:48 Dose: 230 mls/hr Documented by: [id number] Acetaminophen (Ofirmev) 1,000 mg in 100 mls @ 400 mls/hr IV NOW ONE; Protocol Stop: 10/30/20 18:26 Last Infusion: 10/30/20 20:33 Dose: 0 mls/hr Documented by: [id number] Admin: 10/30/20 18:26 Dose: 400 mls/hr Documented by: [id number] Ioversol (Optiray 320 100ml) 94 ml IV ONCE ONE Stop: 10/30/20 13:32 Last Admin: 10/30/20 13:31 Dose: 94 ml Documented by: [id number] Ondansetron HCl (Ondansetron Inj 2 Mg/Ml 2 Ml Vial) 4 mg IV NOW STA Stop: 10/30/20 10:20 Last Admin: 10/30/20 10:31 Dose: 4 mg Documented by: [id number] Potassium Phosphate (Potassium Phos 3 Mmol/1 Ml Infusion) 15 mmol IV NOW STA Stop: 10/30/20 11:24 Last Admin: 10/30/20 20:40 Dose: Not Given Documented by: [id number] (1) Acute appendicitis Acute appendicitis type: with localized peritonitis Appendicitis abscess presence: without abscess Appendicitis gangrene presence: without gangrene Appendicitis perforation presence: without perforation Qualified Code(s): K35.30 - Acute appendicitis with localized peritonitis, without perforation or gangrene
[2020-10-31] MEDS ORDERED: SODIUM PHOSPHATE 3 MMOL/1 ML INFUSION IV STA (08:56)
[2020-10-31] MEDS: CALCIUM 600MG + VIT D 400 IU TAB PO SCH ×2 (09:00→21:06)
[2020-10-31] MEDS: MULTIVITAMIN CHEWABLE TAB PO SCH ×2 (09:00→21:06)
[2020-10-31] MEDS: HEPARIN SOD 5,000 UNIT/0.5 ML VIAL SQ SCH ×2 (09:01→21:07)
[2020-10-31] MEDS ORDERED: SODIUM PHOSPHATE 6 MMOL in SODIUM CHLORIDE 0.9% 250 ML IV ONE (09:30)
[2020-10-31] MEDS: SODIUM CHLORIDE 0.9% 1000ML 1,000 ML IV SCH (10:23)
[2020-10-31] MEDS ORDERED: SODIUM PHOSPHATE 6 MMOL in 0.9 % SODIUM CHLORIDE 100 ML IV ONE (10:45)
[2020-10-31] MEDS ORDERED: HYDROCODONE/ACETAMOPHEN 5/325MG TAB PO PRN (12:02)
[2020-10-31] MEDS: HYDROCODONE/ACETAMOPHEN 5/325MG TAB PO PRN ×2 (16:48→23:26)
[2020-11-01] MEDS: HYDROCODONE/ACETAMOPHEN 5/325MG TAB PO PRN (03:36)
[2020-11-01] MEDS: PIPERACILLIN/TAZOBACTAM 3.375 GM in DEXTROSE 5% 100 ML IV SCH ×3 (05:59→21:36)
[2020-11-01 06:08] LABS: Mean Corpuscular Hemoglobin 29.3 pg (25-34); Mean Corpuscular Hgb Conc 32.4 g/dL (32-36); Mean Corpuscular Volume 90.7 fL (80-100); Mean Platelet Volume 11.5 fL (7.4-10.4); Platelet Count 139 K/uL (130-400); RDW Coefficient of Variation 13.9 % (11.5-14.5); RDW Standard Deviation 46.2 fL (36.4-46.3); Red Blood Count 3.75 M/uL (4.2-5.4); White Blood Count 5.82 K/uL (4.8-10.8)
[2020-11-01 06:41] LABS: BUN Creatinine Ratio 17.5 (10-20); Calcium 7.8 mg/dl (8.5-10.1); Creatinine Clr Calc Pharmacy 143.6 ml/min; Est GFR (African American) 134.6 ml/min; Est GFR (Non-African American) 116.1 ml/min; Magnesium 1.7 mg/dl (1.8-2.4); Potassium 3.5 mmol/L (3.5-5.1)
[2020-11-01] MEDS: SODIUM CHLORIDE 0.9% 1000ML 1,000 ML IV SCH (07:36)
--- NOTE | 2020-11-01 07:50 | Surgery Progress Note ---
Date of Service November 01, 2020 Assessment & Plan (1) S/P laparoscopic appendectomy: Plan: Patient with ruptured appendix with infection and mild peritonitis She is having some belching, no emesis Her abdomen is soft with bowel sounds Her phosphorus and magnesium are low-I have spoken with pharmacy who will order IV supplements She could still develop a mild ileus Encourage ambulation and continue current diet Continue IV antibiotics and drain Admission and Anticipated Discharge Date Admission Date: October 30, 2020 Results & Data ([facility]) Vital Signs (Past 12 Hours) Vital Signs Temp Pulse Pulse Resp BP BP Pulse Ox 11/01/20 07:36 37.0 C 81 16 128/78 94 10/31/20 23:20 37.3 C 91 H 18 113/73 96 PG Care Time/CCT Total # of Minutes Spent Total Time Spent with Patient: Total time spent is greater than 50% in coordination of care (as documented) at patient's floor/unit and/or counseling patient: Coding Level of Care Code None Diagnoses S/P laparoscopic appendectomy Z90.49
[2020-11-01] MEDS ORDERED: POTASSIUM PHOSPHATE 15 MMOL in SODIUM CHLORIDE 0.9% 250 ML IV ONE (08:00)
[2020-11-01] MEDS: CALCIUM 600MG + VIT D 400 IU TAB PO SCH ×2 (09:37→20:16)
[2020-11-01] MEDS: HEPARIN SOD 5,000 UNIT/0.5 ML VIAL SQ SCH ×2 (09:37→20:17)
[2020-11-01] MEDS: MULTIVITAMIN CHEWABLE TAB PO SCH ×2 (09:37→20:16)
[2020-11-01] MEDS: MAGNESIUM SULFATE / D5W 1 GM/100 ML BAG IV SCH ×2 (12:49→14:58)
--- NOTE | 2020-11-01 16:53 | Hospitalist Progress Note ---
Date of Service November 01, 2020 Assessment & Plan (1) Acute appendicitis: Plan: This is a 39yo F with a PMH of VITALY, history of gastric bypass surgery in 2009 who presented with abdominal pain and was found to have acute appendicitis. Sepsis - on admission - now resolved S/P Laparoscopic Appendectomy, POD #2 ruptured appendix with periappendiceal abscess BEVERLEY drain with serosanguineous drainage blood culture: negative so far urine culture: negative so far (+) low grade fever check stool for C diff continue Zosysn IV (2) Hypophosphatemia: (3) Hypomagnesemia: Plan: being repleated monitor (4) Abnormal urinalysis: Plan: Urine culture negative so far continue Zosyn (5) History of gastric bypass: Plan: H/o gastric bypass surgery in 2009 @ [facility] [place] Continue Flintstones complete MV BID, Vit D + C BID (6) VITALY (generalized anxiety disorder): Plan: Improved as of late. PRN Lorazepam DVT Ppx: Heparin Code status: FULL PCP: Alejandro Thank you for this consultation. We will follow the patient with you during their hospital stay. You can reach a member of the [facility] Hospitalist Team 23/09 via [place] Text @ "[facility] Hospitalist" role. Admission and Anticipated Discharge Date Admission Date: October 30, 2020 Subjective ff up for ruptured appendicitis, etc seen resting in bed, comfortable had mild fever this afternoon feels improved today compared to yesterday (+) diarrhea- 2x today no abdominal pain, nausea no chest pain, dyspnea, palpitations, dizziness no other symptoms Review of Systems Review of Systems: all noted and negative except for above Physical Exam Physical Exam: General- oriented x 3, not in distress, speaks in sentences with no effort or accessory muscle use Eyes- anicteric Neck- no JVD Lungs- clear breath sounds bilaterally, no rales/wheezes Heart- normal rate, regular rhythm; no murmurs Abdomen- normal bowel sounds, nondistended, soft, nontender dressings in place- no bleeding discharge, drain in place with scant serous drainage Extremities- no pretibial edema, no calf tenderness Neuro- alert, oriented x 3; no gross focal neurologic deficits Skin- warm & dry Results & Data Results & Data ([facility]) Vital Signs (Past 12 Hours) Vital Signs Temp Pulse Pulse Resp BP Pulse Ox 11/01/20 15:54 37.8 C H 101 H 11/01/20 15:36 37.7 C H 109 H 20 123/82 97 11/01/20 07:36 37.0 C 81 16 128/78 94 all noted and reviewed including below (1) Acute appendicitis Acute appendicitis type: with localized peritonitis Appendicitis abscess presence: without abscess Appendicitis gangrene presence: without gangrene Appendicitis perforation presence: without perforation Qualified Code(s): K35.30 - Acute appendicitis with localized peritonitis, without perforation or gangrene
[2020-11-01] MEDS ORDERED: SIMETHICONE 80 MG CHEW PO PRN (20:24)
[2020-11-02] MEDS: HYDROCODONE/ACETAMOPHEN 5/325MG TAB PO PRN ×2 (01:38→23:28)
[2020-11-02] MEDS: PIPERACILLIN/TAZOBACTAM 3.375 GM in DEXTROSE 5% 100 ML IV SCH ×3 (05:40→23:21)
--- NOTE | 2020-11-02 07:50 | Surgery Progress Note ---
Date of Service November 02, 2020 Assessment & Plan (1) S/P laparoscopic appendectomy: Plan: Patient with history of ruptured appendix Patient had low-grade fever to 38 Has had loose stools, C. difficile is negative Her abdomen is flat and soft We will obtain a CAT scan with contrast to rule out any significant collections And as a baseline with a history of ruptured appendix Continue IV antibiotics and diet as ordered Admission and Anticipated Discharge Date Admission Date: October 30, 2020 Results & Data ([facility]) Vital Signs (Past 12 Hours) Vital Signs Temp Pulse Pulse Resp BP Pulse Ox 11/02/20 07:19 36.5 C 62 16 92/67 L 97 11/01/20 22:45 38.0 C H 109 H 18 115/73 95 11/01/20 20:20 37.5 C PG Care Time/CCT Total # of Minutes Spent Total Time Spent with Patient: Total time spent is greater than 50% in coordination of care (as documented) at patient's floor/unit and/or counseling patient: Coding Level of Care Code None Diagnoses S/P laparoscopic appendectomy Z90.49
[2020-11-02 08:20] LABS: Basophils # (auto) 0.02 K/uL (0-0.2); Basophils % (auto) 0.4 %; Eosinophils # (auto) 0.05 K/uL (0-0.5); Eosinophils % (auto) 0.9 %; Hemoglobin 11.4 g/dL (12.0-16.0); Immature Granulocytes # (auto) 0.02 K/uL (0.00-0.02); Immature Granulocytes % (auto) 0.4 %; Lymphocytes # (auto) 1.61 K/uL (1.2-3.4); Lymphocytes % (auto) 28.8 %; Mean Corpuscular Hemoglobin 29.3 pg (25-34); Mean Corpuscular Hgb Conc 32.6 g/dL (32-36); Mean Platelet Volume 11.1 fL (7.4-10.4); Monocytes # (auto) 0.59 K/uL (0.11-0.59); Monocytes % (auto) 10.6 %; Neutrophils % (auto) 58.9 %; Platelet Count 168 K/uL (130-400); RDW Coefficient of Variation 13.8 % (11.5-14.5); RDW Standard Deviation 45.4 fL (36.4-46.3); Red Blood Count 3.89 M/uL (4.2-5.4); White Blood Count 5.59 K/uL (4.8-10.8)
[2020-11-02 08:44] LABS: Albumin Level 2.4 gm/dl (3.4-5.0); BUN Creatinine Ratio 10.4 (10-20); Calcium 8.4 mg/dl (8.5-10.1); Creatinine Clr Calc Pharmacy 134.3 ml/min; Est GFR (African American) 131.6 ml/min; Est GFR (Non-African American) 113.6 ml/min; Magnesium 2.1 mg/dl (1.8-2.4); Potassium 3.4 mmol/L (3.5-5.1)
[2020-11-02 08:54] LABS: Albumin Globulin Ratio 0.6 (0.9-2); Bilirubin,Total 0.5 mg/dl (0.2-1); Globulin 3.9 gm/dl (2.5-4.0); Phosphorus 3.6 mg/dl (2.5-4.9); Total Protein 6.3 gm/dl (6.4-8.2)
--- NOTE | 2020-11-02 08:54 | XRay Report ---
XR chest 1V portable HISTORY: postop fever COMPARISON: None. FINDINGS: The lungs are clear. Cardiac silhouette is normal in size. No pleural effusions. No pneumot horax. IMPRESSION: No acute process. ACT 112: Negative or not required by law. Electronically signed by: Brian Del Cid M.D. 11/02/2020 8:52 AM
[2020-11-02] MEDS: HEPARIN SOD 5,000 UNIT/0.5 ML VIAL SQ SCH ×2 (09:22→20:39)
[2020-11-02] MEDS ORDERED: OPTIRAY 320 100ml IV ONE (10:01)
[2020-11-02] MEDS: MULTIVITAMIN CHEWABLE TAB PO SCH ×2 (10:13→20:40)
[2020-11-02] MEDS: NSS + 20MEQ KCL 20 MEQ/1,000 ML BAG IV SCH ×2 (10:13→20:38)
[2020-11-02] MEDS: CALCIUM 600MG + VIT D 400 IU TAB PO SCH ×2 (10:13→20:40)
--- NOTE | 2020-11-02 10:41 | CT Scan Report ---
ABDOMEN AND PELVIS CT WITH IV AND ORAL CONTRAST CT DOSE: 839.68 mGy.cm HISTORY: Postop. h/o ruptured appendix TECHNIQUE: Multiaxial CT images of the abdomen and pelvis were performed following the use of intrave nous and oral contrast. A dose lowering technique was utilized adhering to the principles of ALARA. COMPARISON STUDY: Abdomen and pelvis CT 10/30/2020. FINDINGS: There are trace bilateral pleural effusions. Mild bibasilar subsegmental atelectasis. Multi ple small gas bubbles adjacent to the midline of the anterior abdominal wall which appears extraperit snell. This extends into the anterior mediastinum and likely represents postoperative change. A 3.6 c m ill-defined focus of sclerosis within the left iliac wing. This remains unchanged. No fractures wit hin the visualized osseous structures. There is mild periportal edema. Pericholecystic fluid is also likely due to the postoperative/edematous state. The main portal vein is patent. A few punctate galls tones identified. The spleen, adrenal glands, and pancreas unremarkable. There is a punctate stone wi thin the lower pole the right kidney. The left kidney enhances normally. No hydronephrosis. Normal ca liber abdominal aorta. No retroperitoneal lymphadenopathy. Mild bladder wall thickening. This could b e due to underdistention. The uterus and left ovary are unremarkable. There is mild thickening and in flammatory change adjacent to the right ovary which may be secondary to the postoperative change. The re is a right lower quadrant percutaneous drainage catheter which is looped within the deep pelvis. T here is trace fluid within the deep pelvis. No loculated fluid collections to suggest an abscess at t his time. There are surgical clips at the cecal base consistent with a recent appendectomy. However, at the edge of the suture material within the right lower quadrant, there is a 3 cm thick-walled tubu lar structure within the right lower quadrant best seen on images 333 through 344. This likely repres ents the residual tip of the appendix. Postoperative changes consistent with prior gastric bypass. A few borderline dilated gas and contrast-filled loops of small bowel within the abdomen. This favors a mild postoperative ileus. No transition point to suggest a bowel obstruction. IMPRESSION: 1. Status post appendectomy. However, there is a thick-walled tubular structure within the right lowe r quadrant adjacent to the suture material which measures 3 cm in length. This likely represents the residual tip of the appendix. 2. A right lower quadrant percutaneous drainage catheter is seen within the deep pelvis. There is tra ce fluid and mild inflammatory change within the deep pelvis which likely represents residual inflamm atory/postoperative change. No loculated fluid collections to suggest an abscess. 3. Trace bilateral pleural effusions. 4. Right-sided nephrolithiasis. No hydronephrosis. 5. Multiple small gas bubbles seen adjacent to the anterior abdominal wall which extend into the medi astinum. These appear to be extraperitoneal and are likely secondary to the recent postoperative fuentes ge. 6. Mild postoperative ileus is noted. No evidence for bowel obstruction. 7. Redemonstration of the ill-defined sclerosis involving the left iliac bone. Follow-up plain film i n 3-6 months is recommended to ensure stability. 8. Mild thickening and inflammatory change adjacent to the right ovary. This is similar to the prior study and may represent residual inflammatory change or postoperative change. ACT 112: Negative or not required by law. Electronically signed by: Brian Del Cid M.D. 11/02/2020 10:40 AM
--- NOTE | 2020-11-02 11:40 | Surgery Progress Note ---
Date of Service November 02, 2020 Assessment & Plan (1) S/P laparoscopic appendectomy: Plan: Her repeat CT scan did have several findings but fortunately there was no overt residual fluid collection or abscess She did have a ruptured appendix and there is a small residual portion of the tip buried in the retroperitoneum mesenteric area No overt infection around this area-also her gallbladder is edematous but she is tolerating her diet and her bowels are moving somewhat loose Her other findings of right kidney stones, adnexal cysts, and iliac sclerosis can be cared for as outpatient We do not plan on any reoperation and plan on keeping the patient on antibiotics for 2 to 3 weeks If she does improve over the next several days on IV antibiotics she can be discharged home on oral antibiotics Admission and Anticipated Discharge Date Admission Date: October 30, 2020 Results & Data ([facility]) Vital Signs (Past 12 Hours) Vital Signs Temp Pulse Resp BP Pulse Ox 11/02/20 07:19 36.5 C 62 16 92/67 L 97 PG Care Time/CCT Total # of Minutes Spent Total Time Spent with Patient: Total time spent is greater than 50% in coordination of care (as documented) at patient's floor/unit and/or counseling patient: Coding Level of Care Code None Diagnoses S/P laparoscopic appendectomy Z90.49
[2020-11-02] MEDS: HYDROmorphone INJ 0.5 MG/0.5 ML SYR IV PRN ×2 (13:07→18:37)
[2020-11-02] MEDS ORDERED: POTASSIUM CHLORIDE CRTAB 20 MEQ TABCR PO STA (16:24)
--- NOTE | 2020-11-02 16:45 | Hospitalist Progress Note ---
Date of Service November 02, 2020 Assessment & Plan (1) Acute appendicitis: Plan: This is a 39yo F with a PMH of VITALY, history of gastric bypass surgery in 2009 who presented with abdominal pain and was found to have acute appendicitis. Sepsis - on admission - now resolved S/P Laparoscopic Appendectomy, POD #3 ruptured appendix with periappendiceal abscess BEVERLEY drain with serosanguineous drainage blood culture: negative so far urine culture: negative so far (+) low grade fever C diff negative repeat blood culture: pending repeat urine culture: pending IV NSS started continue Zosyn IV monitor (2) Hypophosphatemia: (3) Hypomagnesemia: Plan: being repleated monitor (4) Abnormal urinalysis: Plan: Urine culture negative so far repeat culture pending continue Zosyn (5) History of gastric bypass: Plan: [place] [facility] [place] complete MV BID, Vit D + C BID (6) VITALY (generalized anxiety disorder): Plan: Improved as of late. PRN Lorazepam DVT Ppx: Heparin Code status: FULL PCP: Alejandro Thank you for this consultation. We will follow the patient with you during their hospital stay. You can reach a member of the [facility] Hospitalist Team 23/09 via Hope Text @ "[facility] Hospitalist" role. Admission and Anticipated Discharge Date Admission Date: October 30, 2020 Subjective ff up for ruptured appendicitis, etc seen resting in bed, comfortable ELIZABETH Rehman at bedside throughout whole encounter states she has mild RUQ discomfort today no nausea diarrhea improving no fever/chills no other symptoms Review of Systems Review of Systems: all noted and negative except for above Physical Exam Physical Exam: General- oriented x 3, not in distress, speaks in sentences with no effort or accessory muscle use Eyes- anicteric Neck- no JVD Lungs- clear BS BL no rales/wheezing Heart- normal rate, regular rhythm; no murmurs Abdomen- normal bowel sounds, nondistended, soft, mild RUQ tenderness dressing in place: No bleeding/discharge drain in place: scant serosanguinous drainage Extremities- no pretibial edema, no calf tenderness Neuro- alert, oriented x 3; no gross focal neurologic deficits Skin- warm & dry Results & Data Results & Data ([facility]) Vital Signs (Past 12 Hours) Vital Signs Temp Pulse Resp BP Pulse Ox 11/02/20 14:33 37.1 C 84 16 117/77 96 11/02/20 07:19 36.5 C 62 16 92/67 L 97 all noted and reviewed including below (1) Acute appendicitis Acute appendicitis type: with localized peritonitis Appendicitis abscess presence: without abscess Appendicitis gangrene presence: without gangrene Appendicitis perforation presence: without perforation Qualified Code(s): K35.30 - Acute appendicitis with localized peritonitis, without perforation or gangrene
[2020-11-03] MEDS: PIPERACILLIN/TAZOBACTAM 3.375 GM in DEXTROSE 5% 100 ML IV SCH (05:45)
[2020-11-03] MEDS: NSS + 20MEQ KCL 20 MEQ/1,000 ML BAG IV SCH (06:30)
--- NOTE | 2020-11-03 07:04 | Surgery Progress Note ---
Date of Service November 03, 2020 Assessment & Plan (1) S/P laparoscopic appendectomy: Plan: Patient is doing very well She is afebrile vital signs are stable Tolerating her diet I do believe she would better discharged home with her parents We will leave the drain in place She will be continued on Augmentin and also I will give her a few doses of Diflucan for possible vaginitis Hydrocodone has also been ordered She is very happy with this plan We will see her in the office early next week Admission and Anticipated Discharge Date Admission Date: October 30, 2020 Results & Data ([facility]) Vital Signs (Past 12 Hours) Vital Signs Temp Pulse Resp BP Pulse Ox 11/02/20 23:26 37.0 C 76 16 106/73 96 PG Care Time/CCT Total # of Minutes Spent Total Time Spent with Patient: Total time spent is greater than 50% in coordination of care (as documented) at patient's floor/unit and/or counseling patient: Coding Level of Care Code None Diagnoses S/P laparoscopic appendectomy Z90.49
[2020-11-03] MEDS: CALCIUM 600MG + VIT D 400 IU TAB PO SCH (09:02)
[2020-11-03] MEDS: HEPARIN SOD 5,000 UNIT/0.5 ML VIAL SQ SCH (09:02)
[2020-11-03] MEDS: MULTIVITAMIN CHEWABLE TAB PO SCH (09:02)
--- NOTE | 2020-11-03 15:15 | Discharge Summary (DS) ---
DATE OF ADMISSION: 10/30/2020 DATE OF DISCHARGE: 11/03/2020 PRINCIPAL DIAGNOSIS: Ruptured appendix. PROCEDURES: The patient underwent a laparoscopic appendectomy with abdominal washout and drainage. HISTORY OF PRESENT ILLNESS: The patient is a 39-year-old female who presented to the Emergency Room with acute abdominal pain, found to have severe acute appendicitis. On 10/31/2020 early hours of the morning, taken to the operating room where she underwent laparoscopic appendectomy, which showed a ru ptured appendix with peritonitis and cloudy fluid. She had an abdominal washout with drain placement . Postoperatively, she did relatively well and did have some low-grade fever, with repeat CAT scan s howing some mild edema of the gallbladder and also likely a portion of the tip of the appendix in the retroperitoneal area from the appendiceal rupture. A drain in place. She did well. Her vital sign s were stable. It was felt that she is ready for discharge home on Augmentin, hydrocodone and some D iflucan. She is to be followed in the surgical clinic within one week for drain removal. Job ID: [id number]
--- NOTE | 2020-11-14 14:59 | Coding Query ---
Your help is needed for correct coding of this account; please clarify if the patients Post-operative Ileus (10/31 PN documents possible ileus, 11/01 PN documents she could still develop a mild ileus, then no further documentation) was: not uncommon to develop ileus with ruptured appendix but she seemed to progress slowly (x ) expected out of the surgery ( ) unexpected complication from the surgery ( )other please specify ( ) Ruled-Out Thank you Kelly [facility]
== END 2020-11-03 11:30 | disposition home or self-care (01) | DRG 853 ==
LOC: ED 09:18 → OR 16:20 → 3N 19:43